=== PATIENT | female | born 1975 ===

== ENCOUNTER 2020-05-16 | Emergency (ER) | payer OTHER ==
--- NOTE | 2020-05-16 21:39 | ER ---
Nurse's Notes [facility] Name: Leny Easley Age: 45 yrs Sex: Female : 1975 Arrival Date: 05/16/2020 Time: 21:06 Bed Waiting Private MD: Diagnosis: ED Course: 05/16 21:06 Patient arrived in ED. bp1 Administered Medications: No medications were administered Outcome: 21:38 Patient left the ED. ll1 Signatures: Lila Alvarenga RN RN ll1 Jessica Maxwell bp1
== END 2020-05-16 21:38 | disposition left against medical advice (07) ==
DX: Z02.9 Encounter for administrative examinations, unspecified (principal)